=== PATIENT | female | born 1940 | race Caucasian/White ===

== ENCOUNTER 2017-01-14 09:57 | Emergency (ER) | payer MEDICARE, BC ==
[2017-01-14] MEDS ORDERED: Albuterol/Ipratropium 3.0-0.5 MG/3 ML Neb Soln NEB ONE (10:16)
--- NOTE | 2017-01-14 11:31 | EDM.PDOC ---
ED HISTORY OF PRESENT ILLNESS - General Chief Complaint: Respiratory Problem Stated Complaint: HAVING TROUBLE BREATHING Time Seen by Provider: 01/14/17 10:07 Source of Information: Reports: Patient, Family (), RN notes reviewed History Limitations: Reports: No limitations - History of Present Illness INITIAL COMMENTS - FREE TEXT/NARRATIVE: The patient reports shortness of breath since yesterday morning. It is present at rest, but worse if she exerts himself. She denies any wheezing, cough, or fever. No recent chest pain or palpitations. She states that she had this over 10 years ago, but does not recall what the diagnosis was. - Related Data Allergies/ADRs: Allergies Allergy/AdvReac Type Severity Reaction Status Date / Time No Known Allergies Allergy Verified 01/14/17 10:07 Home Meds: Home Meds Prednisone [IJD: predniSONE] 1 tab PO WITHBREAKFAST #3 tab 01/14/17 [Rx] Past Medical History Cardiovascular History: Reports: High cholesterol Social & Family History - Tobacco Use Smoking Status *Q: Current Every Day Smoker Years of Tobacco use: 60 Packs/Tins Daily: 1 - Alcohol Use Alcohol Use History: No - Recreational Drug Use Recreational Drug Use: No - Living Situation & Occupation Living situation: Reports: , with spouse Occupation: retired ED ROS GENERAL - Review of Systems Review Of Systems: See Below Constitutional: Reports: no symptoms HEENT: Reports: No symptoms Respiratory: Reports: No Symptoms Cardiovascular: Reports: No symptoms Endocrine: Reports: no symptoms GI/Abdominal: Reports: No symptoms : Reports: no symptoms Musculoskeletal: Reports: no symptoms Skin: Reports: no symptoms Neurological: Reports: No Symptoms Psychiatric: Reports: No symptoms Hematologic/Lymphatic: Reports: no symptoms Immunologic: Reports: no symptoms ED EXAM, GENERAL - Physical Exam Exam: See Below Exam Limited By: No limitations General Appearance: alert, WD/WN, no apparent distress Eye Exam: bilateral eye: EOMI, normal inspection Ears: normal external exam, hearing grossly normal Ear Exam: bilateral ear: auricle normal Nose: normal inspection, no blood Throat/Mouth: Normal inspection, Normal lips, Normal voice, No airway compromise Head: atraumatic, normocephalic Neck: normal inspection, full range of motion Respiratory/Chest: no respiratory distress, normal breath sounds, no accessory muscle use, decreased breath sounds, rhonchi (throughout), wheezing (throughout) , prolonged expiration. No: crackles Cardiovascular: normal peripheral pulses, regular rate, rhythm, no gallop, no JVD, no murmur, no rub Peripheral Pulses: 4+: radial (L), radial (R) GI/Abdominal: normal bowel sounds, soft, non tender, no organomegaly, no distention, no abnormal bruit, no mass (Female) Exam: Deferred Rectal (Female) Exam: Deferred Back Exam: normal inspection Extremities: normal inspection, normal range of motion, no pedal edema, normal capillary refill Neurological: alert, oriented, normal cognition, no motor/sensory deficits Psychiatric: normal affect Skin Exam: Warm, Dry, Intact, Normal color, No rash Lymphatic: no adenopathy EKG INTERPRETATION EKG Date: 01/14/17 Time: 10:20 Rhythm: NSR Rate (beats/min): 90 [place]: normal P-wave: enlarged QRS: normal ST-T: normal QT: normal Comparison: NA - no prior EKG Course - Vital Signs Last Recorded V/S: Last Vital Signs Temp 37.0 C 01/14/17 10:07 Pulse 80 01/14/17 13:21 Resp 22 H 01/14/17 13:21 BP 129/65 01/14/17 13:21 Pulse Ox 89 L 01/14/17 13:21 - Orders/Labs/Meds Labs: Laboratory Tests 01/14/17 01/14/17 01/14/17 Range/Units 10:18 10:18 10:18 WBC 8.91 (3.98-10.04) K/mm3 RBC 4.09 (3.98-5.22) M/mm3 Hgb 12.4 (11.2-15.7) gm/L Hct 39.1 (34.1-44.9) % MCV 95.6 H (79.4-94.8) fl MCH 30.3 (25.6-32.2) pg MCHC 31.7 L (32.2-35.5) g/dl RDW Std Deviation 49.4 H (36.4-46.3) fL Plt Count 186 (182-369) K/mm3 MPV 9.4 (9.4-12.3) fl Neutrophils % (Manual) 83 H (40-60) % Band Neutrophils % 0 (0-10) % Lymphocytes % (Manual) 5 L (20-40) % Atypical Lymphs % 2 % Monocytes % (Manual) 9 (2-10) % Eosinophils % (Manual) 0 L (0.7-5.8) % Basophils % (Manual) 1 (0.1-1.2) Platelet Estimate Adequate Plt Morphology Comment Normal Polychromasia 1+ slight Hypochromasia 1+ slight Poikilocytosis 1+ slight Anisocytosis 1+ slight Microcytosis 1+ slight Macrocytosis 1+ slight Ovalocytes 1+ slight RBC Morph Comment Abnormal PT (8.0-13.0) SECONDS INR APTT (22-36) SECONDS D-Dimer, Quantitative (0.19-0.59) mg/L Puncture Site ABG pH (7.35-7.45) ABG pCO2 (35.0-45.0) mmHg ABG pO2 (80.0-100.0) mmHg ABG HCO3 (22.0-26.0) meq/L ABG O2 Saturation (96.0-97.0) % ABG Base Excess (-2-2.0) Regan Test A-a Gradient mmHg FiO2 (21.00-100.00) % Sodium 142 (136-145) mEq/L Potassium 4.3 (3.5-5.1) mEq/L Chloride 106 (98-107) mEq/L Carbon Dioxide 26 (21-32) mEq/L Anion Gap 14.3 (5-15) BUN 18 (7-18) mg/dL Creatinine 0.7 (0.55-1.02) mg/dL Est Cr Clr Drug Dosing 49.11 mL/min Estimated GFR (MDRD) > 60 (>60) mL/min BUN/Creatinine Ratio 25.7 H (14-18) Glucose 112 (83-115) mg/dL Calcium 8.7 (8.5-10.1) mg/dL Total Bilirubin 0.6 (0.2-1.0) mg/dL AST 32 (15-37) U/L ALT 32 (14-59) U/L Alkaline Phosphatase 39 L (46-116) U/L Troponin I < 0.017 (0.00-0.056) ng/mL B-Natriuretic Peptide 135 H (0-100) pg/mL Total Protein 6.9 (6.4-8.2) g/dl Albumin 3.9 (3.4-5.0) g/dl Globulin 3.0 gm/dL Albumin/Globulin Ratio 1.3 (1-2) 01/14/17 01/14/17 Range/Units 10:30 10:50 WBC (3.98-10.04) K/mm3 RBC (3.98-5.22) M/mm3 Hgb (11.2-15.7) gm/L Hct (34.1-44.9) % MCV (79.4-94.8) fl MCH (25.6-32.2) pg MCHC (32.2-35.5) g/dl RDW Std Deviation (36.4-46.3) fL Plt Count (182-369) K/mm3 MPV (9.4-12.3) fl Neutrophils % (Manual) (40-60) % Band Neutrophils % (0-10) % Lymphocytes % (Manual) (20-40) % Atypical Lymphs % % Monocytes % (Manual) (2-10) % Eosinophils % (Manual) (0.7-5.8) % Basophils % (Manual) (0.1-1.2) Platelet Estimate Plt Morphology Comment Polychromasia Hypochromasia Poikilocytosis Anisocytosis Microcytosis Macrocytosis Ovalocytes RBC Morph Comment PT 11.0 (8.0-13.0) SECONDS INR 1.01 APTT 26 (22-36) SECONDS D-Dimer, Quantitative 0.32 (0.19-0.59) mg/L Puncture Site Lt radial ABG pH 7.38 (7.35-7.45) ABG pCO2 43.4 (35.0-45.0) mmHg ABG pO2 58.0 L (80.0-100.0) mmHg ABG HCO3 25.1 (22.0-26.0) meq/L ABG O2 Saturation 88.7 L (96.0-97.0) % ABG Base Excess 0.3 (-2-2.0) Regan Test Positive A-a Gradient 29 mmHg FiO2 21.00 (21.00-100.00) % Sodium (136-145) mEq/L Potassium (3.5-5.1) mEq/L Chloride (98-107) mEq/L Carbon Dioxide (21-32) mEq/L Anion Gap (5-15) BUN (7-18) mg/dL Creatinine (0.55-1.02) mg/dL Est Cr Clr Drug Dosing mL/min Estimated GFR (MDRD) (>60) mL/min BUN/Creatinine Ratio (14-18) Glucose (83-115) mg/dL Calcium (8.5-10.1) mg/dL Total Bilirubin (0.2-1.0) mg/dL AST (15-37) U/L ALT (14-59) U/L Alkaline Phosphatase (46-116) U/L Troponin I (0.00-0.056) ng/mL B-Natriuretic Peptide (0-100) pg/mL Total Protein (6.4-8.2) g/dl Albumin (3.4-5.0) g/dl Globulin gm/dL Albumin/Globulin Ratio (1-2) Meds: Medications Discontinued Medications Generic Name Dose Route Start Last Admin Trade Name Freq PRN Reason Stop Dose Admin Albuterol 2.5 mg 01/14/17 11:36 01/14/17 12:18 Proventil Neb Soln NEB 01/14/17 11:37 2.5 mg ONETIME ONE Administration Albuterol/Ipratropium 3 ml 01/14/17 10:16 01/14/17 10:28 Duoneb 3.0-0.5 Mg/3 Ml NEB 01/14/17 10:17 3 ml ONETIME ONE Administration Prednisone 40 mg 01/14/17 11:36 01/14/17 12:16 Prednisone PO 01/14/17 11:37 40 mg ONETIME STA Administration - Radiology Interpretation Free Text/Narrative:: Two-view chest radiograph does not appear to demonstrate any acute abnormalities. Cardiac silhouette is within normal limits. No pulmonary vascular congestion. No pleural effusions. No focal infiltrate. No pneumothorax. There is some hyperinflation and bilateral diaphragmatic flattening, consistent with COPD. Significant scoliosis of the thoracic spine noted. Lumbar spinal hardware noted. Formal read per the Radiologist pending. - Re-Assessments/Exams Free Text/Narrative Re-Assessment/Exam: 01/14/17 11:37 The patient was reexamined after receiving a DuoNeb. Her overall air movement has improved. She still has considerable rhonchi and wheezing. I have ordered an albuterol neb and prednisone 40 mg.\ 01/14/17 12:53 The patient was reexamined after receiving an albuterol neb and oral prednisone. Her lungs are now entirely clear, and she has good overall air movement. I believe she can safely be discharged home. While the patient does not have a formal diagnosis of COPD, based on her extensive smoking history, her chest radiograph, and her current presentation, I suspect that the patient has COPD, and that her presentation today was a COPD exacerbation. I will e-prescribe prednisone 20 mg, one tablet daily for the next 3 days. I am not going to prescribe an albuterol MDI or neb machine, however, I would like her to followup with her PCP, Dr. Terry, as soon as possible to discuss those options. Departure - Departure Time of Disposition: 12:55 Disposition: Home, Self-Care 01 Condition: fair Clinical Impression: COPD exacerbation Prescriptions: Prednisone [IJD: predniSONE] 1 tab PO WITHBREAKFAST #3 tab Instructions: Chronic Obstructive Pulmonary Disease Exacerbation, [id number] Referrals: Esdras Terry MD [Primary Care Provider] - Forms: ED Department Discharge Additional Instructions: You were seen in the emergency room today for shortness of breath. On examination, you were found to be wheezing, with poor air movement. Workup in the ER included blood work, an ABG, an ECG, and a chest x-ray. Your entire workup was unremarkable. You do not have pneumonia. While not diagnostic, your chest x-ray shows signs of COPD, and your presentation was consistent with a COPD exacerbation. Your symptoms improved substantially after you received nebulized medicine and oral prednisone. Take one tablet of prednisone each morning with breakfast, for the next 3 days, starting tomorrow, 01/16/2016. We STRONGLY recommend you consider quitting smoking. Contact the office of Dr. Terry first thing Monday morning, to arrange to be seen at the next available appointment. He may want to order some lung tests, or start you on some inhaled medicines. If any other problems, please do not hesitate to return to the ER.
[2017-01-14] MEDS ORDERED: Albuterol 0.083% 2.5 MG/3 ML Neb Soln NEB ONE (11:36)
[2017-01-14] MEDS ORDERED: predniSONE 20 MG Tab PO STA (11:36)
[2017-01-14 16:01] VITALS: BP 129/65
--- NOTE | 2017-01-14 18:16 | CR ---
Chest: Two views of the chest were obtained. Comparison: No previous chest x-ray, previous chest CT of 01/10/17 is available. Heart is enlarged. Tortuous thoracic aorta is seen. No acute infiltrates are seen. Nodules noted on prior chest CT are not well seen on chest x-ray. Previous lumbar spine surgery is noted. Scoliosis is present within the spine. Impression: 1. Cardiomegaly. Other incidental findings. 2. Nothing acute is appreciated. Diagnostic code #2
== END 2017-01-14 13:21 | disposition home or self-care (01) ==
LOC: JD.ED 09:57
DX: J44.1 Chronic obstructive pulmonary disease with (acute) exacerbation (principal); E78.00 Pure hypercholesterolemia, unspecified; F17.200 Nicotine dependence, unspecified, uncomplicated
CPT/HCPCS: 36415; 36600; 71020; 80053; 82803; 83880; 84484; 85025; 85379; 85610; 85730; 93005; 94640; 94664; 99285; A9270; 99284